=== PATIENT | female | born 1985 | race Caucasian/White ===

== ENCOUNTER 2020-04-16 16:32 | Inpatient (IN) | payer OTHER ==
[2020-04-16] MEDS ORDERED: Vancomycin 1 GM SDV ONE (16:52)
[2020-04-16] MEDS: Lactated Ringers 1,000 ML IV SCH ×3 (16:55→18:08)
[2020-04-16] MEDS ORDERED: Ondansetron 4 MG/2 ML SDV IVPUSH PRN ×2 (17:28→17:34)
[2020-04-16] MEDS ORDERED: ePHEDrine 50 MG/ML SDV IVPUSH PRN (17:34)
[2020-04-16] MEDS ORDERED: Naloxone 2 MG/2 ML Syringe IVPUSH PRN (17:34)
[2020-04-16] MEDS ORDERED: Promethazine 25 MG/ML SDV IM PRN (17:34)
[2020-04-16] MEDS ORDERED: Misoprostol 400 MCG (4 X 100 MCG TAB) RECTAL PRN (17:35)
[2020-04-16] MEDS ORDERED: Lactated Ringers 1,000 ML IV ONE (17:35)
[2020-04-16] MEDS ORDERED: Methylergonovine 0.2 MG/1 ML Amp IM PRN (17:35)
[2020-04-16] MEDS ORDERED: Lidocaine 1% 30 ML SDV INJECT PRN (17:35)
[2020-04-16] MEDS ORDERED: Carboprost Tromethamine 250 MCG/1 ML Amp IM PRN (17:35)
[2020-04-16] MEDS ORDERED: Tranexamic Acid 1,000 MG in Sodium Chloride 0.9% 100 ML IV PRN (17:35)
[2020-04-16] MEDS ORDERED: Sodium Chloride 0.9% 10 ML Syringe FLUSH PRN (17:35)
[2020-04-16] MEDS ORDERED: Lactated Ringers 1,000 ML IV SCH (17:45)
[2020-04-16] MEDS ORDERED: Lactated Ringers 500 ML IV ONE (17:45)
[2020-04-16] MEDS ORDERED: Lactated Ringers 500 ML IV SCH (17:45)
[2020-04-16] MEDS ORDERED: Oxytocin/Normal Saline 30 UNIT/500 ML BAG IV SCH (17:45)
[2020-04-16] MEDS ORDERED: fentaNYL 100 MCG/2 ML SDV ONE (17:48)
[2020-04-16] MEDS ORDERED: EPINEPHrine 1 MG/1 ML Amp ONE ×2 (17:48→18:00)
[2020-04-16] MEDS ORDERED: Sodium Chloride 0.9% 1,000 ML IV ONE (18:00)
[2020-04-16] MEDS ORDERED: fentaNYL 100 MCG/2 ML SDV ITHECAL ONE (18:00)
--- NOTE | 2020-04-16 18:16 | PCM.PRNOTE ---
- Free Text/Narrative Note: Requested to provide analgesia to full term patient in severe pain. Upon entering the room, patient is sitting on edge of bed complaining of severe abdominal/pelvic pain and discomfort. Procedure was discussed with patient including adverse outcomes and expectations. Pt consented to analgesia, SAB/IT. Pt placed into a proper sitting position. Landmarks for SAB/IT were identified and marked. Hands were washed and appropriate PPE was applied. Back was prepped with betadine x3. A sterile, transparent, fenestrated drape was applied. Excess betadine was removed. Using 3 mL of a 1% lidocaine solution, a skin wheel was placed at the L2/L3 interspace. A 24 ga (4 inch) Pencan spinal needle was inserted until positive for CSF. Negative for heme or paresthesias. Injected fentanyl 30 mcg, sufentanil 25 mcg, and 7.5 mg of a 0.75% bupivacaine solution with an epi wash. Pt was placed left lateral position for approximately 20 minutes. There were zero complications or adverse outcomes. Will continue to monitor. Procedure Date & Time: 04/16/2020 [id number]
[2020-04-16] MEDS ORDERED: Oxytocin 10 Units/1 ML SDV IM PRN (22:13)
[2020-04-16] MEDS ORDERED: Simethicone 80 MG Tab.Chew PO PRN (22:13)
[2020-04-16] MEDS ORDERED: Benzocaine/Menthol 20%-0.5% Spray 56 GM Canister TOP PRN (22:13)
[2020-04-16] MEDS ORDERED: Zolpidem 5 MG Tab PO PRN (22:13)
[2020-04-16] MEDS: Ibuprofen 800 MG Tab PO PRN (23:36)
[2020-04-16] MEDS: Docusate Sodium 100 MG Cap PO PRN (23:36)
--- NOTE | 2020-04-17 01:30 | DEL ---
DATE: 04/16/2020 PREPROCEDURE DIAGNOSES: 1. 39-3/7 weeks' gestation by last menstrual period and 10-week ultrasound. 2. 3, para 0-1-1-1. 3. History of delivery after premature rupture of membranes at 30 weeks' gestation, prior . 4. History of spontaneous miscarriage x1. 5. Group B Streptococcus positive bacteriuria. 6. Penicillin allergy. 7. High-risk . 8. History of kidney stones this . POSTPROCEDURE DIAGNOSES: 1. 39-3/7 weeks' gestation by last menstrual period and 10-week ultrasound. 2. 3, now para 1-1-1-2. 3. Status post spontaneous vaginal delivery. 4. History of delivery after premature rupture of membranes at 30 weeks' gestation, prior . 5. History of spontaneous miscarriage x1. 6. Group B Streptococcus positive bacteriuria. 7. Penicillin allergy. 8. High-risk . 9. History of kidney stones this . 10. Post vaginal delivery. BRIEF HISTORY: A 34-year-old female with above-listed diagnoses, presented to the clinic for evaluation due to increased force and frequency of contractions. No leakage of fluid or vaginal bleeding. Had been checked in the office the day before and was 1.5 cm dilated. In the clinic, she was found to be 6 cm dilated, 75% effaced, and -3 station with bulging bag. She was therefore sent over to the hospital for labor and given a dose of vancomycin for the group B strep and allowed to progress through labor naturally when she was 9 cm. Artificial rupture of membranes was performed with return of clear fluid and that was at 2000 hours. After that, she pushed for about 50 minutes prior to delivery with the details as below. DESCRIPTION OF PROCEDURE: With the patient in dorsal lithotomy position, she delivered a viable male infant in the OA position over intact perineum. Baby was dried, stimulated, and mouth and nose suctioned, and baby placed on mother's abdomen for [id number]. After an approximate 3-minute delay, the 3-vessel umbilical cord was doubly clamped and then cut by the patient's father. Cord blood sample obtained and placenta delivered by gentle cord traction and concomitant uterine massage, inspected, and intact. The patient's labia and vagina inspected and overall intact. There was a very superficial abrasion of the perineum that did not require any stitches. No other lacerations or tears. She does have some significant edema of the vagina and vulva, but no lacerations. COMPLICATIONS: None. ESTIMATED BLOOD LOSS: 200 mL. FINDINGS: Viable male . scores of 9 and 9. Weight 3550 g, 7 pounds 13 ounces. DISPOSITION: Mother and baby to stay in the room to continue [id number] and initiate . [facility] /[id number] MTDD
[2020-04-17] MEDS: Prenatal Multivitamin with Calcium/Folic Acid/Iron Tab PO SCH (08:12)
[2020-04-17] MEDS: Ibuprofen 800 MG Tab PO PRN ×2 (08:12→17:06)
[2020-04-17] MEDS: Docusate Sodium 100 MG Cap PO PRN (08:12)
[2020-04-17] MEDS: Acetaminophen 325 MG Tab PO PRN ×2 (12:45→23:22)
[2020-04-18] MEDS: Ibuprofen 800 MG Tab PO PRN (04:23)
[2020-04-18] MEDS: Prenatal Multivitamin with Calcium/Folic Acid/Iron Tab PO SCH (09:29)
[2020-04-18] MEDS: Acetaminophen 325 MG Tab PO PRN (09:29)
[2020-04-18] MEDS: Docusate Sodium 100 MG Cap PO PRN (09:29)
--- NOTE | 2020-04-20 23:36 | PN ---
DATE: 04/17/2020 SUBJECTIVE: Post vaginal delivery, day #1. The patient is doing well, ambulating, tolerating regular diet, passing flatus, and voiding without difficulties. Maternal child bonding is appropriate and she has been breast- feeding well. Looking forward to discharge home tomorrow. If it was not so late and they did have such a long drive, she would like to be discharged today. Otherwise, she denies any concerns or complaints and feels things have gone very well. OBJECTIVE: General: Pleasant 34-year-old female. Vital Signs: Temperature is 98.2, pulse 72, blood pressure 107/73, respiratory rate of 16. Heart: Regular without murmur. Lungs: Clear to auscultation bilaterally. Abdomen: Soft and nontender. Fundus is firm and below the umbilicus. Extremities: Trace edema. No erythema or tenderness noted. ASSESSMENT: 1. Status post spontaneous vaginal delivery, day 1. 2. 3, now para 1-1-1-2. 3. Delivered at 39-3/7 weeks' gestation. 4. History of delivery after premature rupture of membranes at 30 weeks' gestation, prior . 5. History of spontaneous miscarriage x1. 6. Group B Streptococcus bacteria treated during labor. 7. Penicillin allergy. 8. History of kidney stones this . 9. High-risk , resolved. PLAN: Continue routine cares. Anticipate discharge home tomorrow as long as all continue to go well. The patient's questions have been answered. [facility] /[id number] JOSE C
--- NOTE | 2020-04-21 03:50 | DISCH ---
ADMITTING DIAGNOSES: 1. A 39-3/7 weeks intrauterine based on last menstrual period and 10- week ultrasound. 2. 3, para 0-1-1-1. 3. History of delivery secondary to PPROM at 30 weeks' gestation. She has been on hydroxyprogesterone this . 4. History of spontaneous x1. 5. Group B strep positive bacteriuria. 6. Blood type A positive, rubella immune. 7. High-risk . 8. Kidney stones complicating this . DISCHARGE DIAGNOSES: 1. A 39-3/7 weeks intrauterine based on last menstrual period and 10- week ultrasound. 2. 3, now para 1-1-1-2 and status post spontaneous vaginal delivery without complication. 3. History of delivery secondary to PPROM at 30 weeks' gestation. She has been on hydroxyprogesterone this . 4. History of spontaneous x1. 5. Group B strep positive bacteriuria. 6. Blood type A positive, rubella immune. 7. High-risk . 8. Kidney stones complicating this . BRIEF HISTORY: The patient presented to the clinic for concern of early labor and was found to be 6 cm dilated with bag of water intact. She was sent over to the hospital and initiated vancomycin for group B strep coverage and allowed to progress through labor until she reached 9 cm. At which time, artificial rupture of membranes was performed and after that, she pushed for 50 minutes and she had a spontaneous vaginal delivery without complications. Estimated blood loss was only 200 mL and she delivered a viable male with scores of 9 and 9 weight 3550 g, 7 pounds 13 ounces, and immediately was able to do skin to skin. HOSPITAL COURSE: Hospital course has been good. The patient has not had any complications or problems noted during her hospital stay. She was ambulating and tolerating regular diet, had no symptoms of preeclampsia. No chest pain or shortness of breath. was going well and she was ready to be discharged home. DISCHARGE CONDITION: Good. PHYSICAL EXAMINATION: Vital Signs: Temperature is 98.7, pulse of 86, blood pressure 126/79, respiratory rate of 16, and O2 saturations 98% on room air. Heart: Regular without murmur. Lungs: Clear to auscultation bilaterally. Abdomen: Soft and nontender. Fundus is firm and below the umbilicus. Extremities: No edema, erythema, or tenderness noted. Admission hemoglobin was 14.4 and platelets of 213. DISPOSITION: Home with family. MEDICATIONS: [id number] ibuprofen and Tylenol as needed for pain. Continue her vitamin 1 daily. INSTRUCTIONS: Routine post vaginal delivery instructions for mother were provided and all of her questions answered. FOLLOWUP: She will make an appointment to follow up with Dr. Alcantara for her 6- week , sooner if any problems or concerns arise. [facility] /[id number]
== END 2020-04-18 10:00 | disposition home or self-care (01) | DRG 807 ==
LOC: DL.OBCHECK 16:32 → DL.OB 16:53 → OBSVTOIN 21:50
PROVIDERS: ADMIT Family Medicine; ATTEND Family Medicine
PROC: 10E0XZZ Delivery of Products of Conception, External Approach (ICD-10-PCS; principal; 2020-04-16)
PROC: 10907ZC Drainage of Amniotic Fluid, Therapeutic from Products of Conception, Via Natural or Artificial Opening (ICD-10-PCS; 2020-04-16)
PROC: 3E0R3BZ Introduction of Anesthetic Agent into Spinal Canal, Percutaneous Approach (ICD-10-PCS; 2020-04-16)
PROC: 00HU33Z Insertion of Infusion Device into Spinal Canal, Percutaneous Approach (ICD-10-PCS; 2020-04-16)
DX: O99.824 Streptococcus B carrier state complicating childbirth (principal); Z37.0 Single live birth; Z3A.39 39 weeks gestation of pregnancy; Z20.828 Contact with and (suspected) exposure to other viral communicable diseases; Z28.82 Immunization not carried out because of caregiver refusal
CPT/HCPCS: 01967; 36415; 59409; 85027; A9270-GY; J0171; J2405; J2590; J3010; J3370; J7050; J7120; U0002